=== PATIENT | male | born 1930 | race Caucasian/White ===

== ENCOUNTER 2017-08-17 18:13 | Inpatient (IN) | payer OTHER ==
[~2017-08-17] VITALS: Ht 177.8 cm; Wt 76.8 kg
--- NOTE | ~2017-08-17 | PR ---
[place], [place] PROGRESS NOTE NAME: [facility]RE [id number] UNIT #: [id number] ROOM: 314 DOCTOR: ROXANNA MAZARIEGOS MD BIRTHDATE: [birth year] DOS: 08/20/2017 CHIEF COMPLAINT: "I am still having those thoughts." SUMMARY OF THE VISIT: The patient was interviewed as he was sitting at the edge of his bed. He reported to me that although he is feeling better, he is very worried because he is still having those intrusive thoughts. His mood is slightly brighter. He is sleeping better at night. He is worried, however, that the thoughts will not go away, yet I gave him support and redirection and he nodded in affirmation. MENTAL STATUS: He is alert and oriented. Mood does seem to be trending towards euthymia and affect is more appropriate. There is no susan or hypomania. He still has those intrusive thoughts, but feels he would not act on them. Short term, intermediate, and long-term memory are intact. PLAN: I am still awaiting his gabapentin level to determine if it is therapeutic. I will increase his Remeron from 15 to 22.5 mg at bedtime engaging him in individual and jamil milieu activity and discharge when psychiatrically stable. ROXANNA MAZARIEGOS MD CM:PNTRANS [id number] ROXANNA MAZARIEGOS MD 08/21/17 0011 interface
--- NOTE | ~2017-08-17 | PR ---
[place], [place] PROGRESS NOTE NAME: [facility] [id number] UNIT #: [id number] ROOM: 314 DOCTOR: ROXANNA MAZARIEGOS MD BIRTHDATE: [birth year] DOS: 08/21/2017 CHIEF COMPLAINT: "I am feeling better. I am less depressed and those thoughts are getting better." SUMMARY OF THE VISIT: The patient was interviewed in the quiet room. He was sitting there and he readily engaged in conversation. He reached to shake my hand as I approached, stating that he is feeling so much better now and that these medicines are working better than the previous ones he had while at home. He reports he is sleeping soundly through the night, waking up refreshed, not sedate in any fashion and that the intrusive thoughts of harming self and others have dissipated significantly. He also convincingly denies any medication side effects, no sedation, somnolence, extrapyramidal symptoms or tardive dyskinesia are noted. MENTAL STATUS: He is alert and oriented to person, place, and time. Mood is definitely trending towards euthymia. Affect is much more appropriate. His speech rate and pattern has normalized. There is no susan, hypomania. There are no gross psychotic symptoms noted. As mentioned previously, the intrusive thoughts of harming self and others have dissipated almost completely. Memory for the most part is fully intact. PLAN: I will maintain his current psychotropic regimen. Continue to monitor and support, engage in individual and jamil milieu activity with the plan to return home when psychiatrically stable. ROXANNA MAZARIEGOS MD CM:PNTRANS [id number] ROXANNA MAZARIEGOS MD 08/21/17 2250 interface
--- NOTE | ~2017-08-17 | PR ---
[place], [place] PROGRESS NOTE NAME[id number] UNIT #: [id number] ROOM: 316 DOCTOR: ROXANNA MAZARIEGOS MD BIRTHDATE: [birth year] DOS: 08/19/2017 CHIEF COMPLAINT: "Bit by bit and day by day I am getting better doctor, thank you." SUMMARY OF THE VISIT: The patient was interviewed as he was walking up and down the quach for exercise. He reports that he does feel like the current medicines are working better than the previous ones and states that he is sleeping well and the intrusive thoughts of wanting to hurt himself or his family are dissipating. He reports no side effects from the current medication regimen. MENTAL STATUS: He is alert and oriented. Mood does seem to be trending towards euthymia. Affect is much more appropriate. There is no susan, hypomania or gross psychosis. Short-term, intermediate, and long-term memory are intact. PLAN: I will maintain his current psychotropic regimen of Remeron and Invega. Engage in individual and jamil milieu activity, returning to the least restrictive environment when psychiatrically stable. ROXANNA MAZARIEGOS MD CM:PNTRANS [id number] ROXANNA MAZARIEGOS MD 08/19/17 1435 interface
--- NOTE | ~2017-08-17 | WRIGHTHP ---
[place], [place] PATIENT HISTORY AND PHYSICAL EXAM NAME[id number] UNIT #: [id number] ROOM: 316 DOCTOR: ROXANNA MAZARIEGOS MD BIRTHDATE: [birth year] DOS: 08/18/2017 CHIEF COMPLAINT: "I was having thoughts of hurting myself and my family." HISTORY OF PRESENT ILLNESS: This is an 87-year-old white male who was sent here from [facility] where he had presented with a chief complaint of having suicidal thoughts towards himself and homicidal thoughts towards his children and his grandchildren. He reports that the thoughts of hurting his children and grandchildren first occurred in 2006 and have episodically waxed and waned over time. Most recently, he has seen a psychiatrist who had prescribed him Lexapro 10 mg a day. This was working to stop the intrusive thoughts, but recently he received the generic form of the Lexapro and stated that he noticed a decline in his mood and an increase in the intrusive thoughts. He himself began then taking 2 of the generic Lexapro daily, which did start to help some, but he still then noticed fleeting suicidal thoughts with a plan. The patient presented to [facility] for evaluation and they felt that inpatient stabilization was warranted at this time to prevent harm to self and others. PAST MEDICAL HISTORY: Remarkable for hyperlipidemia, GERD, hypothyroidism, macular degeneration and an essential tremor. SOCIAL HISTORY: The patient does not drink alcohol, smoke cigarettes or use any illicit drugs. ALLERGIES: He has no known allergies listed. STRENGTHS: The patient is physically fit, good verbal skills, in a supportive environment. MENTAL STATUS: The patient is alert and oriented with actual pretty decent details regarding his past history. Mood does seem to be somewhat depressed, although he minimizes this. There is no hypomania, susan. There are no gross psychotic symptoms, although there is the presence of these intrusive thoughts of wanting to stab his children and his grandchildren and most recently has hurt himself. Memory for the most part seems relatively intact. DIAGNOSIS UPON ADMISSION: Major depression, recurrent, with psychotic features. PLAN: I will go ahead and switch him off the Lexapro on to Remeron 15 mg at bedtime. I did give him a loading dose of Invega 6 mg last night. I will cut this down to 3 mg in the morning and monitor him. I also had started him on Exelon patch, believing that dementia was present, but this does not seem to be the case as he does seem to be fairly alert and oriented, so I will discontinue the Exelon patch at this point, but continue to monitor his cognitive status. We will engage him in individual and jamil milieu activity with the ultimate plan to return home or to the least restrictive environment when psychiatrically stable. [place], [place] PATIENT HISTORY AND PHYSICAL EXAM NAME: BOYD TOURE UNIT #: [id number] ROOM: [facility] DOCTOR: ROXANNA MAZARIEGOS MD BIRTHDATE: [birth year] ROAXNNA MAZARIEGOS MD CM:HISPHYS:PATIENT HISTORY AND PHYSICAL EXAMINATION 8 4 ROXANNA MAZARIEGOS MD 08/18/1714 interface
--- NOTE | ~2017-08-17 | DS ---
[place], [place] DISCHARGE SUMMARY NAME[id number] UNIT #: [id number] ROOM: 314 DOCTOR: ROXANNA MAZARIEGOS MD BIRTHDATE: [birth year] DOS: 08/22/2017 CHIEF COMPLAINT: "I was having thoughts of hurting myself and my family." HISTORY OF PRESENT ILLNESS: This is an 87-year-old white male who was sent here from [facility] where he had presented with a chief complaint of having suicidal thoughts towards himself and homicidal thoughts towards his children and his grandchildren. He reports that the thoughts of hurting his children and grandchildren first occurred in 2006 and have episodically waxed and waned over time. Most recently, he had seen a psychiatrist who prescribed him Lexapro 10 mg a day. This was working to stop the intrusive thoughts until recently when he was given a generic form of Lexapro and he stated that this caused a decline in his mood and an increase in the intrusive thoughts. He himself began taking two of the generic Lexapro daily, which did start to help, but he still noticed fleeting suicidal thoughts with a plan. He presented to [facility] for evaluation and they felt that inpatient stabilization was warranted to prevent harm to self and others. PAST MEDICAL HISTORY: Remarkable for hyperlipidemia, GERD, hypothyroidism, macular degeneration and an essential tremor. SOCIAL HISTORY: The patient does not drink alcoholic beverages, smoke cigarettes or use illicit drugs. ALLERGIES: He has no known allergies listed. STRENGTHS: He is physically fit, good verbal skills and in a supportive environment. WEAKNESSES: He has significant psychiatric stressors. SUMMARY OF THE HOSPITAL COURSE: The patient was admitted to the unit where he had his Lexapro discontinued due to the fact that it was beginning to be ineffective Remeron 15 mg at bedtime was utilized as an antidepressant. This dramatically improved sleep and appetite. Invega was given at 6 mg a day for the first night and given his age, the dose was lowered to 3 mg in the morning. The patient was also started initially on Exelon patch, but he did seem to be alert and oriented x 3, so this was discontinued. He maintained on the Invega 3 mg a day. Remeron was increased to 22.5 mg at bedtime with good results. The patient reported that his depressive symptoms dissipated rather quickly. The fleeting thoughts of hurting self and others also decreased in both frequency and intensity and well present upon discharge were so miniscule that he did not seem bothered by them. He tolerated the medication regimen well and did not exhibit any excess sedation, somnolence, extrapyramidal symptoms or tardive dyskinesia. MENTAL STATUS AT DISCHARGE: He is alert and oriented. Mood does seem to be euthymic. Affect appropriate. There is no symptom suggestive of susan or hypomania. As mentioned previously, the auditory or intrusive thoughts had dissipated almost completely. Memory for the most part was intact. [place], [place] DISCHARGE SUMMARY NAME: [facility]: [id number] UNIT #: [id number] ROOM: 314 DOCTOR: ROXANNA MAZARIEGOS MD BIRTHDATE: [birth year] DISCHARGE DIAGNOSIS: Major depression, recurrent with psychotic features. PLAN: The patient is to return home. His prescriptions have been e-scribed to [facility]. He is medically and psychiatrically stable. He is able to attend to the basic ADLs that require him to be independent. His biopsychosocial needs are adequately being met by family and the community at large. ROXANNA MAZARIEGOS MD CM:LISSY [phone] ROXANAN MAZARIEGOS MD 08/22/17 1414 interface
[2017-08-17] MEDS ORDERED: CELEXA20 MG PO (18:19)
[2017-08-17] MEDS ORDERED: FENOFIBRATE160 MG PO (18:20)
[2017-08-17] MEDS ORDERED: FINASTERIDE5 M1 PO (18:21)
[2017-08-17] MEDS ORDERED: NEURONTIN800 MG PO (18:24)
[2017-08-17] MEDS ORDERED: LOVASTATIN40 MG PO (18:27)
[2017-08-17] MEDS ORDERED: MIDODRINE HCL5 M1 PO ×2 (18:29→18:31)
[2017-08-17] MEDS ORDERED: MIDODRINE HCL10 MG PO (18:30)
[2017-08-17] MEDS ORDERED: NAMENDA XR28 M1 PO (18:31)
[2017-08-17] MEDS ORDERED: SYNTHROID,LEV112 MCG PO (18:32)
[2017-08-17] MEDS ORDERED: PROPRANOLOL HCL10 MG PO (18:32)
[2017-08-17 20:29] VITALS: BP 158/85
[2017-08-17 21:48] LABS: BILIRUBIN NEGATIVE (NEGATIVE); BLOOD 3+ (NEGATIVE); CLARITY SL CLOUDY (CLEAR); COLOR YELLOW (YELLOW); GLUCOSE NEGATIVE (NEGATIVE); KETONE NEGATIVE (NEGATIVE); LEUKO ESTERASE NEGATIVE (NEGATIVE); NITRITE NEGATIVE (NEGATIVE); PH 5.5 (5.0-9.0); UROBILINOGEN 0.2 E.U./dl (0.2-1.0)
[2017-08-17 22:06] LABS: BACTERIA 1+; EPITHELIAL CELLS 0-2; RBC TNTC rbc/hpf (0-2); WBC 0-2 wbc/hpf (0-5)
[2017-08-17 22:13] VITALS: BP 158/85
[2017-08-18 07:37] LABS: BASO % 0.4 % (0.0-1.0); EOS # 0.1 10*3/uL (0.0-0.4); EOS % 2.1 % (1.0-4.0); HEMATOCRIT 42.8 % (42.0-52.0); HEMOGLOBIN 14.8 g/dl (14.0-18.0); LYMPH # 1.7 10*3/uL (1.3-4.4); LYMPH % 32.4 % (27.0-41.0); MEAN CORPUSCULAR HGB 33.2 pg (27.0-31.0); MEAN CORPUSCULAR HGB CONC 34.6 g/dl (33.0-37.0); MEAN PLATELET VOLUME 9.9 fl (9.6-12.3); MONO # 0.6 10*3/uL (0.1-1.0); MONO % 10.8 % (3.0-9.0); NEUT # 2.8 10*3/uL (2.3-7.9); NEUT % 53.9 % (47.0-73.0); PLATELET COUNT AUTOMATED 155 10*3/uL (130-400); RED BLOOD COUNT 4.46 10*6/uL (4.50-5.90); RED CELL DISTRI WIDTH 12.8 % (0-14.5); WHITE BLOOD COUNT 5.2 10*3/uL (4.8-10.8)
[2017-08-18 07:39] VITALS: BP 147/70
[2017-08-18 07:55] LABS: ALBUMIN 3.5 gm/dl (3.1-4.5); ALKALINE PHOSPHATASE 51 U/L (45-117); BUN 18 mg/dl (7-24); CHLORIDE 108 mmol/L (98-107); CHOLESTEROL 172 mg/dL (<200); CREATININE 1.01 mg/dL (0.70-1.30); HDL CHOLESTEROL 47 mg/dl (40-60); LDL CHOLESTEROL 103 mg/dL (9-159); POTASSIUM 3.7 mmol/L (3.5-5.1); SGOT/AST 29 IU/L (3-35); SGPT/ALT 16 U/L (12-78); SODIUM 144 mmol/L (136-145); TOTAL PROTEIN 6.6 gm/dL (6.4-8.2); TRIGLYCERIDES 112 mg/dl (<150); VLDL CHOLESTEROL 22 mg/dL (6-40)
[2017-08-18 08:01] LABS: THYROID STIM HORMONE (HS) 0.676 uIU/ml (0.358-4.75)
[2017-08-18 20:13] VITALS: BP 117/76
[2017-08-19 08:05] VITALS: BP 143/71
[2017-08-19 20:52] VITALS: BP 127/71
[2017-08-20 08:03] VITALS: BP 132/60
[2017-08-20 20:04] VITALS: BP 143/74
[2017-08-21 07:45] VITALS: BP 152/71
[2017-08-21 16:07] LABS: NEURONTIN (GABAPENTIN) 12.3 ug/mL (4.0-16.0)
[2017-08-21 19:51] VITALS: BP 147/73
[2017-08-22 08:07] VITALS: BP 151/71
[2017-08-22] MEDS ORDERED: VITAMIN D31000 UNIT PO (11:17)
[2017-08-22] MEDS ORDERED: PALIPERIDONE ER3 MG PO (12:55)
[2017-08-22] MEDS ORDERED: MIRTAZAPINE15 M2 PO (12:55)
== END 2017-08-22 14:23 | disposition home or self-care (01) | DRG 885 ==
LOC: 3N 18:13
PROVIDERS: Psychiatry & Neurology Psychiatry
DX: F33.3 Major depressive disorder, recurrent, severe with psychotic symptoms (principal); I95.9 Hypotension, unspecified; R45.851 Suicidal ideations; R45.850 Homicidal ideations; E78.5 Hyperlipidemia, unspecified; K21.9 Gastro-esophageal reflux disease without esophagitis; E03.9 Hypothyroidism, unspecified; F17.210 Nicotine dependence, cigarettes, uncomplicated; H35.30 Unspecified macular degeneration; R25.9 Unspecified abnormal involuntary movements; Z90.89 Acquired absence of other organs; Z82.3 Family history of stroke; Z79.899 Other long term (current) drug therapy

== ENCOUNTER 2017-12-12 08:43 | Inpatient (IN) | payer OTHER ==
[~2017-12-12] VITALS: Ht 172.7 cm; Wt 77.7 kg
--- NOTE | ~2017-12-12 | PR ---
[place], [place] PROGRESS NOTE NAME: [id number] UNIT #: [id number] ROOM: 317 DOCTOR: ROXANNA MAZARIEGOS MD BIRTHDATE: [birth year] DOS: 12/16/2017 CHIEF COMPLAINT: "I am still having those bad thoughts; I would like to have a production engineer come in to give me communion tomorrow." SUMMARY OF THE VISIT: The patient was interviewed as he was sitting at the edge of his bed in his room. He engaged readily in conversation. He reports he is still having thoughts of suicide and still feels depressed. The thoughts are intrusive and problematic and bother him throughout the day. He did take solace in the fact that a packing machine inspector or production engineer came in the other day and did talk to him. This made him feel better for a short period of time. He does report tolerating the current medication regimen well and is open to me adjusting things accordingly. His only complaint is mild tremor, which I do believe is secondary to the discontinuation of his previous antipsychotic and not the Seroquel that was added. MENTAL STATUS: He is alert and oriented with some time gaps. Mood does seem to be trending towards euthymia. Affect is more appropriate, but still depressed. He endorses positive suicidal thoughts with a plan. There is no susan or hypomania. There are no auditory or visual hallucinations. No delusions. Short-term memory has mild gaps, but for the most part is intact. PLAN: I will increase Cymbalta to 30 mg in the morning and 60 mg at night, add Cogentin 0.5 mg b.i.d. to see if this impacts positively on the tremor. We will reach out to a chemistry tutor or episcopal vice president consulting services to come Monday to give him the sacrament of communion, engage in individual and jamil milieu activity, returning then to the least restrictive environment when psychiatrically stable. ROXANNA MAZARIEGOS MD CM:PNTRANS 0 0 ROXANNA MAZARIEGOS MD 12/16/1738 interface
--- NOTE | ~2017-12-12 | PR ---
[place], [place] PROGRESS NOTE NAME: BOYD TOURE UNIT #: [id number] ROOM: 317 DOCTOR: ROXANNA MAZARIEGOS MD BIRTHDATE: [birth year] DOS: 12/14/2017 CHIEF COMPLAINT: "I slept a little better, but I am still having the thoughts." SUMMARY OF THE VISIT: The patient was interviewed in the quiet area. He reported that he did sleep better and slept until about 5:00 a.m. and then woke up, he is still having the suicidal thoughts, but reports that if he prays or reads the Bible this is one thing that will ease his mind, being around people, watching television do not help. I discussed with him the possibility of consulting a salmon troll fisher or a mormonism editing computer publisher and he did agree to do so. He does report no side effects from the medication changes and is aware that I adjusted both the Cymbalta and added the Seroquel. MENTAL STATUS: He is alert and oriented. Mood does seem to be still depressed. Affect is flat, blunted, and constricted. He still endorses significant suicidal thoughts and a plan. Short term memory, intermediate memory and long-term memory are roughly intact. PLAN: I will maintain the Cymbalta at 60 mg at bedtime. I will increase Seroquel to 100 mg at bedtime. I will consult both Dr. Brandon Gusman, psychologist and a salmon troll fisher or mormonism editing computer publisher for spiritual and psychological services. ROXANNA AMZARIEGOS MD CM:PNTRANS [phone] ROXANNA MAZARIEGOS MD 12/14/17 1239 interface
--- NOTE | ~2017-12-12 | PR ---
[place], [place] PROGRESS NOTE NAME: BOYD TOURE UNIT #: [id number] ROOM: 309 DOCTOR: ROXANNA MAZARIEGOS MD BIRTHDATE: [birth year] DOS: 12/20/2017 CHIEF COMPLAINT: "I slept better. I am still having the thoughts, but maybe there are little better." SUMMARY OF THE VISIT: The patient was interviewed as he was sitting at the edge of his bed, looking out the window. He engaged readily in conversation and did report that he is sleeping better since I adjusted his Seroquel. He is still having those intrusive thoughts; however, as I approached him, he did smile more so than he has in the past. He convincingly denies medication side effects, other than the mild tremor that is noted in his hands. This has been bothersome for him and has been worse in the last 10 days per his report. MENTAL STATUS: He is alert and oriented. Mood does seem to be trending towards euthymia. Affect is more appropriate. There is no susan, hypomania or gross psychosis. There is still the intrusive suicidal thoughts. Short term memory, intermediate memory and long-term memory are relatively intact. PLAN: I will increase his Cogentin from 0.5 mg twice a day to 1 mg twice a day in an effort to suppress the tremor. I will also add Symmetrel 100 mg twice daily to help with the tremor. There is a question as to whether or not he has Parkinson's disease. We will go ahead and refer to a neurologist post-discharge for further evaluation. ROXANNA MAZARIEGOS MD CM:PNTRANS [phone] ROXANNA MAZARIEGOS MD 01/18/18 1424 interface
--- NOTE | ~2017-12-12 | PR ---
[place], [place] PROGRESS NOTE NAME: BOYD TOURE UNIT #: [id number] ROOM: 309 DOCTOR: ROXANNA MAZARIEGOS MD BIRTHDATE: [birth year] DOS: 12/19/2017 INTERVAL NOTE CHIEF COMPLAINT: "I am still having those thoughts." SUMMARY OF THE VISIT: The patient was interviewed as he sat eating his breakfast. He had most if not all of his breakfast completed. He did engage readily in conversation and reported that he did sleep a little better, but still woke up early. He no longer has the side effects of urinary frequency, which was predominant yesterday and seems to have dissipated with the lowering of the Cymbalta dose. He continues to report that the thoughts of suicide are intrusive and torment him throughout the day. He is willing to allow me to adjust his medicines further. MENTAL STATUS: He is alert and oriented to person, place and time. Mood does still seem to be depressed. He is very much preoccupied with suicide as the only means to get relief. There is no hypomania or susan. There are no overt auditory or visual hallucinations. Memory for the most part is intact. PLAN: His gabapentin level is therapeutic at 11.6, so I will maintain his current Neurontin dosing. I will increase Seroquel from 100 mg at bedtime to 200 mg at bedtime. He does request the presence of a telegraph office telephone clerk again and I have notified clinical social work therapist to please call the dioceses to see if a telegraph office telephone clerk can be made available to meet the patient's spiritual needs. We will engage in individual and jamil milieu activity, returning then to the least restrictive environment when psychiatrically stable. ROXANNA MAZARIEGOS MD CM:PNTRANS [id number] ROXANNA MAZARIEGOS MD 01/18/18 1421 interface
--- NOTE | ~2017-12-12 | PR ---
[place], [place] PROGRESS NOTE NAME: [id number] UNIT #: [id number] ROOM: 311 DOCTOR: ROXANNA MAZARIEGOS MD BIRTHDATE: [birth year] DOS: 12/27/2017 INTERVAL NOTE CHIEF COMPLAINT: "Those thoughts are just so bad, they have not gone away." SUMMARY OF THE VISIT: The patient was interviewed first in the hallway as he propelled himself in his wheelchair and then later he did ask to speak to me again in the dining area. He reports on a positive note that the tremors do seem to be lessening. On a negative note, he notices no appreciable change in his mood or the negative intrusive thoughts since the initiation of the Cymbalta. He also notes significant side effects mounting from the Cymbalta. I discussed with him the option of switching to a different antidepressant and he did agree that this would be something he was willing to do. MENTAL STATUS: He remains alert and oriented to person, place and time. Mood does still seem to be horribly depressed. Affect is constricted. He continues to endorse positive suicidal thoughts and a wish to . There is no hypomania, susan or psychotic symptoms. Memory for the most part is fully intact. PLAN: At this point in time, I will discontinue Cymbalta due to ineffectiveness and start him on Trintellix 10 mg at bedtime. I will utilize Rozerem 8 mg at bedtime as needed for sleep aid. We will also obtain a PT, OT consult to evaluate his gait and determine the safest way for him to ambulate on the unit and at home. We will engage in individual and jamil milieu activity, returning to the least restrictive environment when psychiatrically stable. ROXANNA MAZARIEGOS MD CM:PNTRANS [phone] ROXANNA MAZARIEGOS MD 12/27/17 1547 interface
--- NOTE | ~2017-12-12 | PR ---
[place], [place] PROGRESS NOTE NAME: BOYD TOURE UNIT #: [id number] ROOM: 317 DOCTOR: ROXANNA MAZARIEGOS MD BIRTHDATE: [birth year] DOS: 12/18/2017 INTERVAL NOTE CHIEF COMPLAINT: "I still have those thoughts talk." SUMMARY OF THE VISIT: The patient was interviewed as he sat in the group therapy room. He engaged readily in conversation and continues to report of having the intrusive thoughts of wishing he were . We discussed at length the fact that he is Judaism and per his orthodox beliefs, it would be a mortal sin to commit suicide and while he has the thoughts, he states that he would not ever carry them through. He, however, is tortured by the thoughts and remains depressed. He also continues to have what appears to be side effects secondary to either the initiation of meds or the discontinuation of meds. He still has some mild mouth tremors, some mild hand tremors and this morning, he complained of urinary issues with starting his stream. MENTAL STATUS: He is alert and oriented to person, place, and relatively to time. Mood does seem to be still depressed. He still endorses the neurovegetative symptoms as well as the fleeting thoughts of suicide. There is no susan or psychotic symptoms. Memory for the most part is intact. PLAN: I will renew his p.r.n. Ativan in case he requires intervention. I will also lower his Cymbalta down to 60 mg at bedtime in case the dosing is causing him to have some urinary issues. We will monitor and support. ROXANNA MAZARIEGOS MD CM:PNTRANS [phone] ROXANNA MAZARIEGOS MD 12/18/17 1523 interface
--- NOTE | ~2017-12-12 | EKG ---
[place], [place] ELECTROCARDIOGRAM REPORT NAME: BOYD TOURE UNIT #: [id number] ROOM: 317 DOCTOR: BRIDGET DRAFT REPORT BIRTHDATE: [birth year] [facility] Test Date: 2017-12-12 Test Time: 09:39:17 Pat Name: BOYD TOURE Department: Room: [facility] Gender: M Warp Scouring Vat Tender: Marychuy Conner : 1930 Requested By: SANDRO GONZALEZ Order Number: [id number] Reading MD: Delta Mera MD Measurements Intervals [place] Rate: 56 P: 32 GA: 169 QRS: -22 QRSD: 93 T: 25 QT: 447 QTc: 432 Interpretive Statements Sinus rhythm Electronically Signed On 12-12-2017 18:27:49 PDT by Delta Mera MD CM:EKGRPT:ELECTROCARDIOGRAM REPORT [id number] SANDRO GILL DRAFT REPORT SANDRO GONZALEZ M.D.
--- NOTE | ~2017-12-12 | PR ---
[place], [place] PROGRESS NOTE NAME: [id number] UNIT #: [id number] ROOM: 312 DOCTOR: ROXANNA MAZARIEGOS MD BIRTHDATE: [birth year] DOS: 12/28/2017 INTERVAL NOTE CHIEF COMPLAINT: "I am still having those thoughts." SUMMARY OF THE VISIT: The patient was interviewed in his room. He reports that the thoughts are still very much present and he is still having a significant amount of sleep issues. He reports he tolerated the Trintellix well for the first night. He notes on a positive stream that his tremors have been significantly improved since the Sinemet has been added and adjusted. MENTAL STATUS: He is alert and oriented. Mood does still seem to be overwhelmingly depressed. Affect is flat, blunted, and constricted. He endorses multiple neurovegetative symptoms and both suicidal and homicidal thoughts. There is no susan or hypomania. There are no overt auditory or visual hallucinations. Memory for the most part is intact. PLAN: I will increase his Trintellix from 10 to 20 mg at bedtime maximizing the dose. I did educate him on the timeframe to which antidepressants take to work and offered him support and requested that he be patient with the medication. He nodded in approval. We will continue to engage him in individual and jamil milieu activity, returning back home or the least restrictive environment when psychiatrically stable. ROXANNA MAZARIEGOS MD CM:PNTRANS [phone] ROXANNA MAZARIEGOS MD 12/28/17 1201 interface
--- NOTE | ~2017-12-12 | PR ---
[place], [place] PROGRESS NOTE NAME: BOYD TOURE UNIT #: [id number] ROOM: 309 DOCTOR: ROAXNNA MAZARIEGOS MD BIRTHDATE: [birth year] DOS: 01/03/2018 CHIEF COMPLAINT: "I don't want to go to [place] I cannot be self-sufficient." SUMMARY OF THE VISIT: The patient was interviewed as he sat in his wheelchair, watching television and he engaged readily in conversation. Earlier in the morning I did watch him ambulate with the assistance of physical therapy, as long as he is having assistance he does seem to ambulate better, but he is fearful of walking now because he is afraid he will fall. He discussed at length his fears about going into a shelter in [place] stating that his brother was in a home in [place] and they required him to be self-sufficient. The patient is fearful that he could not be self-sufficient and needs more assistance. Both he and his agree that placement at this point is advisable and are willing to go forward with this. I did discuss with him multiple homes in the [place] and [place] area that would be appropriate and told him that social worker will sit down and talk to him about each home and no decision will be made unless he and his both approve of it. MENTAL STATUS: He is alert and oriented with time gaps. Mood does seem to be still depressed. He is still admitting to intrusive thoughts. He looks rather sad and forlorn for the most part. There is no susan, hypomania or gross psychotic symptoms. Memory has some minor gaps, but is intact. PLAN: I will change his Sinemet to 10/100 t.i.d. to pull out the dose more consistently through the day to see if this helps with his movements. We will continue his Trintellix at 20 mg a day. Continue to engage in individual and jamil milieu activity, returning then to the least restrictive environment when psychiatrically stable. ROXANNA MAZARIEGOS MD CM:PNTRANS [phone] ROXANNA MAZARIEGOS MD 01/03/18 1028 interface
--- NOTE | ~2017-12-12 | PR ---
[place], [place] PROGRESS NOTE NAME: BOYD TOURE UNIT #: [id number] ROOM: 311 DOCTOR: ROXANNA MAZARIEGOS MD BIRTHDATE: [birth year] DOS: 12/26/2017 INTERVAL NOTE CHIEF COMPLAINT: "I am still having those thoughts and I am still shaky." SUMMARY OF THE VISIT: The patient was interviewed first in the dining area as he completed his breakfast, then later when his did come for a family meeting. The patient reports that he is still having the intrusive thoughts, but he is fighting them. He does note on a positive note that he is slightly less tremorous, but the tremors are still problems especially when he has purposeful voluntary movement. He reports no side effects other than he is again having some urinary hesitancy. MENTAL STATUS: He is alert and oriented. Mood does seem to be still depressed, but improving. There is no hypomania or susan. There are no gross psychotic symptoms. Short-term, intermediate, and long-term memory are relatively intact. PLAN: I will increase the Sinemet from 10-100 b.i.d. to 25-100 b.i.d., maintain his current dose of Cymbalta. I have discontinued the Seroquel and we will attempt to avoid antipsychotic mood stabilizers at this point because of his sensitivity. I have also started vitamin E 400 IUs daily yesterday to treat this as a possible tardive dyskinesia. We will continue to monitor and support, engage in individual and jamil milieu activity, returning to the least restrictive environment when psychiatrically stable. ROXANNA MAZARIEGOS MD CM:PNTRANS [id number] ROXANNA MAZARIEGOS MD 12/26/17 1144 interface
--- NOTE | ~2017-12-12 | PR ---
[place], [place] PROGRESS NOTE NAME[id number] UNIT #: [id number] ROOM: 311 DOCTOR: ROXANNA MAZARIEGOS MD BIRTHDATE: [birth year] DOS: 12/25/2017 INTERVAL NOTE CHIEF COMPLAINT: "I am still having those thoughts to end my life." SUMMARY OF THE VISIT: The patient was interviewed in his room. He was standing through most of the interview. As he stood, he did sway a little bit. He did also report to me that he fell twice during the weekend. He could not verbalize whether it was totally because his legs gave out on him or because he was dizzy and unsteady. He continues to look very depressed and is very flat and mask-like in his presentation. MENTAL STATUS: He is alert and oriented to person, place and fairly much to time. Mood does seem to still be depressed. Affect is still constricted and blunted. He endorses significant thoughts of wanting to harm himself. There is no susan, hypomania or psychosis. Memory for the most part is intact. PLAN: I am going to simplify his drug regimen. The addition of the Cogentin and the Symmetrel have not seemed to lessen the hand tremors much if at all. I will also discontinue the Seroquel in case it is exacerbating the tremor. It certainly could also be causing orthostatic hypotension. In its place, I will add low dose Sinemet 10-100 twice a day to address what appears to be parkinsonian symptoms. I will also start him on vitamin E 400 international units in the morning to address the possibility that this is tardive dyskinesia. We will engage him in individual and jamil milieu activity, returning to the least restrictive environment when psychiatrically stable. ROXANNA MAZARIEGOS MD CM:PNTRANS [phone] ROXANNA MAZARIEGOS MD 12/25/17 1749 interface
--- NOTE | ~2017-12-12 | PR ---
[place], [place] PROGRESS NOTE NAME: [facility]RE [id number] UNIT #: [id number] ROOM: 317 DOCTOR: BRYCE CAMPOS MD BIRTHDATE: [birth year] DOS: 12/17/2017 PSYCHIATRIC PROGRESS NOTE SUBJECTIVE: The patient seen and spoke with the nursing staff. Per staff, the patient is still very depressed. Continued to have suicidal and homicidal ideation, but informed the staff that he will not act on it. The patient was pleasant and cooperative, but very flat. He was sitting in the room in front of the nursing station. He reported being depressed and down. He also talked about having fleeting nonspecific homicidal thoughts. He said that he took his medication and did not have any side effect from the medication. MENTAL STATUS EXAMINATION: The patient was pleasant and cooperative. His affect was very flat. He described his mood as "down." He denied any auditory or visual hallucination. No delusion or paranoia noted. He still had fleeting suicidal and nonspecific homicidal ideation, but no intent or plan. Insight and judgment was poor to fair. PLAN: 1. Continue current medication as per the treatment team. 2. Continue redirection. 3. Supportive care. BRYCE CAMPOS MD CM:PNTRANS [phone] BRYCE CAMPOS MD 12/18/17 0125 interface
--- NOTE | ~2017-12-12 | PR ---
[place], [place] PROGRESS NOTE NAME: [facility]OURE [id number] UN[facility] #: [id number] ROOM: 309 DOCTOR: ROXANNA MAZARIEGOS MD BIRTHDATE: [birth year] DOS: 01/02/2018 CHIEF COMPLAINT: "I fell again this morning." SUMMARY OF THE VISIT: The patient was interviewed in the dining area where he was sitting with a male peer. He continued to complain of intrusive negative thoughts. I discussed with him the option of going into a 30-day rehab facility giving him a chance for the Trintellix to work longer and also to build up strength and improve his gait. Surprisingly, he agreed without any reservations whatsoever. MENTAL STATUS: The patient is alert and oriented with some time gaps. Mood does still seem to be depressed with some anxious overtones. There is no susan or hypomania. There are no gross psychotic symptoms. No auditory or visual hallucinations are present. There is still the presence of intrusive thoughts to either hurt himself or others. Short term memory has some gaps, otherwise he is intact. PLAN: I will recheck a Neurontin level in the a.m. to ensure that the level has not crept up to high therapeutic or outside of therapeutic range. I will discontinue his Klonopin as I do fear that the Klonopin is causing him to be somewhat somnolent. We will monitor and support, engage in individual and jamil milieu activities, returning to the least restrictive environment when psychiatrically stable. ROXANNA MAZARIEGOS MD CM:PNTRANS [id number] ROXANNA MAZARIEGOS MD 01/02/18 1153 interface
--- NOTE | ~2017-12-12 | PR ---
[place], [place] PROGRESS NOTE NAME: BOYD TOURE UNIT #: [id number] ROOM: 317 DOCTOR: MERLIN STILES,LIZZIE (JACK) BIRTHDATE: [birth year] DOS: 12/18/2017 At the present time, this patient still fears that he may want to harm someone in his family. He states he would never do anything to hurt anybody in his family, but he worries that he might be compelled to do something to hurt them. He denies any suicidal ideation or plan whatsoever. He does want to follow with Dr. Salazar and Dr. Salazar's therapist in [facility] once he is discharged from the hospital. Clearly, he is not ready for discharge yet, but hopefully his thoughts of harming others will eventually go away and he will be discharged home with outpatient therapy. DIAGNOSIS: Major depressive disorder with psychotic features. Thank you very much for this consultation. LIZZIE BOYER ED.D CM:DAVID [id number] ROXANNA BOYER ED.D (BOB) 12/19/17 0935 interface
--- NOTE | ~2017-12-12 | PR ---
[place], [place] PROGRESS NOTE [id number] UN[facility] #: [id number] ROOM: 317 DOCTOR: ROXANNA MAZARIEGOS MD BIRTHDATE: [birth year] DOS: 12/21/2017 INTERVAL NOTE CHIEF COMPLAINT: "I am still having those thoughts." SUMMARY OF THE VISIT: The patient was interviewed as he sat at the edge of his bed. Of note, the tremors in his lips seem to have totally abated and the hand tremors also seem to be lessening but are still present. He looked more relaxed and calmer, although he continues to complain of intrusive suicidal thoughts. He voices no side effects from the medication and was very hopeful that he is going to get better. MENTAL STATUS: He is alert and oriented. Mood does seem to be gradually trending towards euthymia. Affect is more appropriate. There is no susan, hypomania or psychosis. Short term, intermediate, and long-term memory are relatively intact. PLAN: I will maintain his current psychotropic regimen. I will see if we can obtain a sock examiner to come in for his spiritual needs. Continue to support and redirect discharging then home when psychiatrically stable. ROXANNA MAZARIEGOS MD CM:PNTRANS 1 35 ROXANNA MAZARIEGOS MD 12/21/172032 interface
--- NOTE | ~2017-12-12 | PR ---
[place], [place] PROGRESS NOTE NAME: BOYD TOURE UNIT #: [id number] ROOM: 309 DOCTOR: ROXANNA MAZARIEGOS MD BIRTHDATE: [birth year] DOS: 01/01/2018 INTERVAL NOTE CHIEF COMPLAINT: "I am still having those thoughts what if I hurt myself, what if I hurt somebody else." SUMMARY OF THE VISIT: The patient was interviewed as he was in his room reading the newspaper, sitting on the edge of the bed. He engaged readily in conversation. He continues to be preoccupied with the thoughts that are in his head that he may hurt somebody. He almost panicked, as I discussed with him the possibility of returning home. We discussed at length his Jainism beliefs and how suicide is a mortal sin as is killing anyone. He did report that he would never act on these thoughts, but yet is still bothered by the persistent nature of them. MENTAL STATUS: He is alert and oriented. Mood does seem to be still depressed and very anxious and fretful. There is no significant hypomania, susan or psychosis. Memory for the most part is intact. PLAN: Given the near panic-like symptoms, he is having regarding these thoughts, I will go ahead and increase his daytime Klonopin, bringing his total dose to 0.5 mg in the morning and 1 mg at night. My hope is that if I would lessen the anxiety, this will make him feel more comfortable and be able to discharge home where he will allow the Trintellix more of a time to be effective at alleviating his depressive symptoms. ROXANNA MAZARIEGOS MD CM:PNTRANS [phone] ROXANNA MAZARIEGOS MD 01/01/181926 interface
--- NOTE | ~2017-12-12 | WRIGHTHP ---
[place], [place] PATIENT HISTORY AND PHYSICAL EXAM NAME: BOYD TOURE [facility] #: [id number] UNIT #: [id number] ROOM: 317 DOCTOR: ROXANNA MAZARIEGOS MD BIRTHDATE: [birth year] DOS: 12/13/2017 INITIAL PSYCHIATRIC EVALUATION CHIEF COMPLAINT: "I have just been so depressed, and I have been having those bad thoughts." HISTORY OF PRESENT ILLNESS: This is an 87-year-old white male known to me from a previous psychiatric admission to the [facility] who presented to the Emergency Room at [facility] with a chief complaint of wanting to stab people. The patient reports that his feelings of depression have been exacerbating over the last 4-6 weeks. During this period of time, he has noted increasing depression with poor sleep with difficulty falling asleep, sleep continuity disturbance, production trainer awakening, anergia, anhedonia, hopeless and helpless feelings, crying spells, and inability to cope. He also has had fleeting thoughts of wanting to harm himself by carbon monoxide poisoning or getting a knife and stabbing people. He reports he has bad thoughts and has actually had visions of him doing these types of acts. The patient reports that his current psychiatric medications, which include Invega, which was recently increased from 3 to 6 mg a day and Remeron 22.5 mg a day have been ineffective. He is admitted now to rule out organic factors, to stabilize on medication and to engage in individual and jamil milieu activity. PAST MEDICAL HISTORY: Remarkable for hyperlipidemia, GERD, hypothyroidism, macular degeneration, tremors, and a lengthy history of major depression, recurrent, with psychotic features. SOCIAL HISTORY: The patient does not drink alcohol, use illicit drugs, nor does he smoke cigarettes. FAMILY MEDICAL HISTORY: Remarkable for CVA in his father which was the cause of his early demise. His mother at the age of 94, reportedly of old age. STRENGTHS: Ambulatory, good verbal skills, supportive family. WEAKNESSES: Chronic mental health issues and poor coping skills. MENTAL STATUS: The patient is alert and oriented with some time gaps. Mood does seem to be very despondent and depressed. Affect is flat, blunted, and constricted. He endorses significant neurovegetative symptoms as well as both suicidal and homicidal ideation. Memory does have mild gaps, but overall he is relatively intact. DIAGNOSIS: Major depression, recurrent, severe, with psychotic features. PLAN: I have already discontinued his Remeron and will discontinue his Invega now. The patient does have some slight resting tremor of his hands as well as a very fine tremor in his lips. We will discontinue Invega then in lieu of Seroquel 50 mg at bedtime, which has a relatively low risk of EPS and tardive dyskinesia. I have already discontinued the Remeron in lieu of Cymbalta 30 mg [place], [place] PATIENT HISTORY AND PHYSICAL EXAM NAME: BOYD TOURE UNIT #: [id number] ROOM: 317 DOCTOR: DELILAH DURHAM,ROXANNA BIRTHDATE: [birth year] at bedtime, but we will go ahead and increase this now to 60 mg at bedtime. The patient does have some chronic pain issues for which he takes Neurontin 800 mg 3 times a day. This should also help impact positively on pain control. We will engage him in individual and jamil milieu activity with the plan then to discharge to the least restrictive environment when psychiatrically stable. ROXANNA MAZARIEGOS MD CM:HISPHYS:PATIENT HISTORY AND PHYSICAL EXAMINATION 0 4 ROXANNA MAZARIEGOS MD 12/13/1752 interface
--- NOTE | ~2017-12-12 | DS ---
[place], [place] DISCHARGE SUMMARY NAME: BOYD TOURE [facility] #: [id number] UNIT #: [id number] ROOM: 309 DOCTOR: ROXANNA MAZARIEGOS MD BIRTHDATE: [birth year] DOS: 01/04/2018 CHIEF COMPLAINT: "I have been so depressed and I have been having these bad thoughts." HISTORY OF PRESENT ILLNESS: This is an 87-year-old white male known to me from a previous psychiatric admission to the [facility]. He presented to the Emergency Room at [facility] with a chief complaint of wanting to stab people. He reports that this feeling of depression has been exacerbating over the last 4-6 weeks. During this period of time, he notes poor sleep and appetite, sleep continuity disturbance, family program specialist awakening, anergia, anhedonia, hopeless, helpless feelings, crying spells, and inability to cope. He has had fleeting thoughts of both wanting to hurt himself or hurt other people and he is fearful that he will act on this even though he has got strong Church beliefs. He is admitted now to rule out organic factors to stabilize on medication and to engage in individual and jamil milieu activity. SUMMARY OF HOSPITAL COURSE: The patient was admitted where his Remeron and Invega were both discontinued due to ineffectiveness. He was started on Cymbalta initially believing that this would help and this was gradually titrated from 30 to 60 mg a day and maintained for several days without any benefit. He continued to report significant depression that was pervasive in everything that he did, eventually then the Cymbalta was discontinued due to ineffectiveness and Trintellix 10 mg a day was started and Rozerem was also utilized to help with sleep issues. The patient's behavior persisted. Of note, he seemed to be extremely parkinsonian and had mass-like face and was very blunted. His gait was significantly impaired. For this reason, Sinemet was started to impact positively on the parkinsonian symptoms. The patient continued to regress ____ physically and his gait was extremely poor. The patient had fallen multiple times toward the latter part of his stay. Ultimately, the hospitalist felt that his medical conditions outweighed his psychiatric issues and the patient was discharged from the psychiatric floor on to a medical floor for further medical intervention. MENTAL STATUS AT DISCHARGE: The patient is alert and oriented with time gaps. Mood was still somewhat depressed with anxious overtones and there was persistent thoughts of hurting himself and others, although the likelihood of him acting on these thoughts was minimal. There was no manic symptoms or hypomanic symptoms. Memory for short term events had some mild issues, but otherwise he was fully intact. DISCHARGE DIAGNOSIS: Major depression, recurrent, severe with psychotic features. DISPOSITION: The patient is to be discharged from the Psychiatric Unit and admitted to the medical floor. Should you require further intervention, reconsult me. [place], [place] DISCHARGE SUMMARY NAME: BOYD TOURE UNIT #: [id number] ROOM: 309 DOCTOR: ROXANNA MAZARIEGOS MD BIRTHDATE: [birth year] ROXANNA MAZARIEGOS MD CM:LISSY [phone] ROXANNA MAZARIEGOS MD 01/25/18 1329 interface
--- NOTE | ~2017-12-12 | PN ---
[place], [place] PROGRESS NOTE NAME: BOYD TOURE UNIT #: [id number] ROOM: 309 DOCTOR: ROXANNA MAZARIEGOS MD BIRTHDATE: [birth year] DATE: 12/20/[address] MAZARIEGOS 01/18/18 1414: Above note reviewed. Agree with observations, recommendations, and overall treatment plan. ROXANNA MAZARIEGOS MD CM:PNTRANS 1414 ROXANNA MAZARIEGOS MD 01/18/18 1419 ANGI CERRATO [email or web address].TM
--- NOTE | ~2017-12-12 | PR ---
[place], [place] PROGRESS NOTE NAME: [facility]OURE [facility] [id number] UNIT #: [id number] ROOM: 312 DOCTOR: ROXANNA MAZARIEGOS MD BIRTHDATE: [birth year] DOS: 12/29/2017 INTERVAL NOTE CHIEF COMPLAINT: "I am still having those bad thoughts and I am so anxious." SUMMARY OF THE VISIT: The patient was interviewed in his room. He reports that he is still having the intrusive thoughts of either hurting himself or hurting someone else. Additionally, he reports that he did sleep, slightly better with the Rozerem, but once he woke up early in the morning, he was not able to fall back to sleep. He does appear outwardly anxious and he did endorse that he does feel anxious throughout the day. How much of the anxiety is exacerbating the depressive symptoms, it is unknown, but at this point, I feel we need to intervene to decrease his anxiety level and aid sleep further. MENTAL STATUS: He is alert and oriented with some minor gaps. Mood does seem to be still depressed and with anxious overtones. He endorses intrusive thoughts that persist. There is no susan or psychosis. Short-term, intermediate, and long-term memory for the most part are intact. PLAN: I will discontinue Rozerem due to ineffectiveness. I will increase Exelon patch to its maximum dose of 13.3 mg a day and I will utilize Klonopin 0.5 mg at bedtime to improve sleep and also to decrease daytime anxiety. We will instruct the nurses to monitor for any signs of excess sedation and somnolence with the Klonopin and if these are not present and anxiety persists, we can safely increase the nighttime Klonopin dose to 1 mg at bedtime. We will engage in individual and jamil milieu activity, returning home or the least restrictive environment when psychiatrically state. ROXANNA MAZARIEGOS MD CM:PNTRANS 40 ROXANNA MAZARIEGOS MD 12/29/171640 interface
--- NOTE | ~2017-12-12 | PR ---
[place], [place] PROGRESS NOTE NAME: [facility]OURE [id number] UN[facility] #: [id number] ROOM: 311 DOCTOR: BRYCE CAMPOS MD BIRTHDATE: [birth year] DOS: 12/24/2017 SUBJECTIVE: The patient seen and spoke with the staff. Per staff, the patient is doing well. No behavior problems or issues. He had a fall, but no one witnessed it, but the patient did not hit his head. The patient was pleasant and cooperative. He was in the day area watching the football game. He reports doing well. He did not express any concern about the fall. Denied any headache, nausea or vomiting or changes in his vision. He reports good sleep and appetite. MENTAL STATUS EXAMINATION: The patient was pleasant and cooperative. He was alert and oriented x 4. He described his mood as "okay." Affect, mood congruent. Thought process, goal directed. No flight of ideas, loosening of association. He denied auditory or visual hallucination. No delusion or paranoia noted. He denied suicidal ideation, intent or plan. He also denied homicidal ideation, intent or plan. PLAN: 1. Continue current medication and care. 2. Continue redirection. 3. Final medication management and discharge plan by the regular team. BRYCE CAMPOS MD CM:PNTRANS [phone] BRYCE CAMPOS MD 12/25/17 0508 interface
--- NOTE | ~2017-12-12 | PR ---
[place], [place] PROGRESS NOTE [id number] UNIT #: [id number] ROOM: 309 DOCTOR: ROXANNA MAZARIEGOS MD BIRTHDATE: [birth year] DOS: 01/04/2018 CHIEF COMPLAINT: "I am still depressed, but I think those thoughts are getting better." SUMMARY OF THE VISIT: The patient was interviewed as he sat at the edge of the dining area. He reported to me that he is still feeling very depressed, but for the first time in his stay, he reported that the intrusive thoughts of hurting himself and others have lessened in both frequency and intensity. He continues to complain of having an unstable gait. I discussed his gait issues with Physical Therapy who report he has significant safety issues and is very unsteady even with the walker and that he does not utilize the walker correctly and represents a significant risk of falling and injuring himself. MENTAL STATUS: He is alert and oriented with some time gaps. Mood does seem to be trending towards euthymia. Affect is more appropriate. There is no susan or hypomania. There are no gross auditory or visual hallucinations. Memory for the most part is intact. PLAN: I am going to maintain his current psychotropic regimen. We have discussed the case at length in treatment team and are still strongly recommending a less than 30-day rehab stay to further allow the medication to work to combat the depression as well as for him to utilize that time to strengthen his gait and not be such a risk for falls. We will talk to the family at length and discuss with them the pros and cons of all the options. ROXANNA MAZARIEGOS MD CM:PNTRANS [id number] ROXANNA MAZARIEGOS MD 01/04/18 0944 interface
--- NOTE | ~2017-12-12 | CON ---
[place], [place] REPORT OF CONSULTATION NAME: BOYD TOURE UNIT #: [id number] ROOM: 317 DOCTOR: LIZZIE BOYER ED.DJACK) BIRTHDATE: [birth year] DOS: 12/14/2017 HISTORY OF PRESENT ILLNESS: The patient is an 87-year-old male referred by Dr. Mazariegos for psychological evaluation. At the present time, he is on the [facility]. He is and has four children. He is retired from the [employer]. He states his family physician is Dr. Judge and his medical history is pertinent for major depressive disorder, hyperlipidemia, GERD, prostate cancer, hypothyroidism, macular degeneration, and major depression. His psych meds include Cymbalta and Seroquel. The patient denies any drug or alcohol use or abuse. He was awake, alert and oriented in all 3 spheres and did quite well throughout the interview. He does admit to being very depressed and having thoughts of harming others and he still has those thoughts. He denies any suicidal ideation, however. He follows with Dr. Salazar, who is a psychiatrist in the [place], [place] area. He also follows with Dr. Salazar's therapist for counseling. He was admitted to the [facility] earlier this year. He states he was depressed and they placed him on Invega and he did fairly well for a while, but then he started to decompensate. He is now depressed again and feels as though he wants to hurt other people. He states he would never do anything to hurt anybody else, but he states that he has thoughts of harming others. In my opinion, this patient is possibly a danger to others, although he denies he would do anything to harm others. He does have a history of prostate cancer, but he seemed to be not too disturbed about this because of the fact that he is not getting medications and that his age, this would not be a significant issue according to him. He is depressed partly because of his age and also difficulties he and his have had with the aging process in general. Overall, however, he does fairly well and realizes his situation is better than most at his age because he is 87 years old. He states he has no idea why he has gotten depressed again, but he really wants to no longer feel depressed and also no longer feel like he wants to harm others. DIAGNOSIS: Major depressive disorder with psychotic features. RECOMMENDATIONS: 1. The patient should continue his medications as prescribed. 2. The patient should follow up with Psychiatry and Psychology once he is discharged from the hospital. Thank you very much for this consult. [place], [place] REPORT OF CONSULTATION NAME: BOYD TOURE UNIT #: [id number] ROOM: [facility] DOCTOR: LIZZIE BOYER ED.D (JACK) BIRTHDATE: [birth year] LIZZIE BOYER ED.D CM:CONSTR:REPORT OF CONSULTATION 1717 12/15/17 0207 interface ROXANNA MAZARIEGOS MD
--- NOTE | ~2017-12-12 | PR ---
[place], [place] PROGRESS NOTE NAME: BOYD TOURE [facility] #: [id number] UNIT #: [id number] ROOM: 311 DOCTOR: BRYCE CAMPOS MD BIRTHDATE: [birth year] DOS: 12/23/2017 PSYCHIATRIC PROGRESS NOTE SUBJECTIVE: The patient is seen and spoke with the staff. Per staff, the patient is doing well, taking his medication. Slept well last night, but lately he started showing some tremor. The patient was pleasant and cooperative. He was in the day area, watching the TV. When I asked him how he is doing, he said "good." I asked, I wanted to see the tremor, but it seems like he is doing well when I asked him to extend his arm. He was not in any acute distress. He did not mention any problems or issues. MENTAL STATUS EXAMINATION: The patient was pleasant and cooperative. Described his mood as "okay." He denied auditory or visual hallucination. No delusion or paranoia are noted. He denied suicidal ideation, intent or plan. He also denied any homicidal ideation, intent or plan. PLAN: Include; 1. Continue current medication and care. 2. Continue to monitor about the shake. 3. The patient probably will need to have a Neurology referral on discharge. 4. Increase activity in groups. BRYCE CAMPOS MD CM:PNTRANS [id number] BRYCE CAMPOS MD 12/24/17 0516 interface
[~2017-12-12 08:43] MED LIST: CELEXA20 MG PO; FENOFIBRATE160 MG PO; FINASTERIDE5 M1 PO; LOVASTATIN40 MG PO; MIDODRINE HCL10 MG PO; MIDODRINE HCL5 M1 PO; MIRTAZAPINE15 M2 PO; NAMENDA XR28 M1 PO; NEURONTIN800 MG PO; PALIPERIDONE ER3 MG PO; PROPRANOLOL HCL10 MG PO; SYNTHROID,LEV112 MCG PO; VITAMIN D31000 UNIT PO
[2017-12-12 08:44] VITALS: BP 170/69
[2017-12-12 09:19] LABS: URINE AMPHETAMINES < 1000 (1000ng/ml); URINE BARBITURATES < 200 (200ng/ml); URINE BENZODIAZEPINES < 200 (200ng/ml); URINE CANNABINOIDS (THC) < 50 (50ng/ml); URINE COCAINE < 300 (300ng/ml); URINE METHADONE < 300 (300ng/ml); URINE OPIATES < 300 (300ng/ml)
[2017-12-12 09:24] LABS: COLOR YELLOW (YELLOW)
[2017-12-12 09:25] LABS: BILIRUBIN NEGATIVE (NEGATIVE); BLOOD TRACE-LYSED (NEGATIVE); CLARITY CLEAR (CLEAR); GLUCOSE NEGATIVE (NEGATIVE); KETONE NEGATIVE (NEGATIVE); PH 5.5 (5.0-9.0); SPECIFIC GRAVITY 1.015 (1.005-1.030); UROBILINOGEN 0.2 E.U./dl (0.2-1.0)
[2017-12-12 09:26] LABS: BASO % 0.5 % (0.0-1.0); EOS # 0.1 10*3/uL (0.0-0.4); EOS % 1.8 % (1.0-4.0); HEMATOCRIT 41.3 % (42.0-52.0); HEMOGLOBIN 14.5 g/dl (14.0-18.0); LYMPH # 1.3 10*3/uL (1.3-4.4); LYMPH % 33.8 % (27.0-41.0); MEAN CELL VOLUME 93.7 fl (80.0-94.0); MEAN CORPUSCULAR HGB 32.9 pg (27.0-31.0); MEAN CORPUSCULAR HGB CONC 35.1 g/dl (33.0-37.0); MEAN PLATELET VOLUME 9.7 fl (9.6-12.3); MONO # 0.3 10*3/uL (0.1-1.0); MONO % 7.6 % (3.0-9.0); NEUT # 2.2 10*3/uL (2.3-7.9); PLATELET COUNT AUTOMATED 161 10*3/uL (130-400); RED BLOOD COUNT 4.41 10*6/uL (4.50-5.90); RED CELL DISTRI WIDTH 11.9 % (0-14.5)
[2017-12-12 09:26] LABS: EPITHELIAL CELLS 0-2; LEUKO ESTERASE NEGATIVE (NEGATIVE); NITRITE NEGATIVE (NEGATIVE); URINE PHENCYCLIDINE < 25 (25ng/ml)
[2017-12-12 09:42] LABS: ALBUMIN 3.6 gm/dl (3.1-4.5); ALKALINE PHOSPHATASE 70 U/L (45-117); BUN 19 mg/dl (7-24); CHLORIDE 108 mmol/L (98-107); CREATININE 1.01 mg/dL (0.70-1.30); POTASSIUM 3.8 mmol/L (3.5-5.1); SGOT/AST 19 IU/L (3-35); SODIUM 142 mmol/L (136-145); TOTAL PROTEIN 6.6 gm/dL (6.4-8.2)
[2017-12-12 09:53] LABS: SGPT/ALT 20 U/L (12-78)
[2017-12-12] MEDS ORDERED: MIRTAZAPINE15 M2 PO (11:06)
[2017-12-12] MEDS ORDERED: NAMENDA-28 PO (11:08)
[2017-12-12] MEDS ORDERED: MULTIPLE VITAM1 EAC1 PO (11:09)
[2017-12-12] MEDS ORDERED: HALOPERIDOL5 MG PO (11:10)
[2017-12-12] MEDS ORDERED: FISH OIL CONC1000 M1 PO (11:10)
[2017-12-12 12:11] VITALS: BP 158/78
[2017-12-12 12:46] VITALS: BP 159/78
[2017-12-12 20:00] VITALS: BP 149/69
[2017-12-13 07:49] LABS: BASO % 0.5 % (0.0-1.0); EOS # 0.1 10*3/uL (0.0-0.4); EOS % 1.6 % (1.0-4.0); HEMATOCRIT 45.3 % (42.0-52.0); LYMPH # 1.8 10*3/uL (1.3-4.4); LYMPH % 29.3 % (27.0-41.0); MEAN CELL VOLUME 92.3 fl (80.0-94.0); MEAN CORPUSCULAR HGB 32.6 pg (27.0-31.0); MEAN CORPUSCULAR HGB CONC 35.3 g/dl (33.0-37.0); MEAN PLATELET VOLUME 9.6 fl (9.6-12.3); MONO # 0.4 10*3/uL (0.1-1.0); MONO % 6.3 % (3.0-9.0); NEUT # 3.8 10*3/uL (2.3-7.9); NEUT % 62.1 % (47.0-73.0); PLATELET COUNT AUTOMATED 196 10*3/uL (130-400); RED BLOOD COUNT 4.91 10*6/uL (4.50-5.90); RED CELL DISTRI WIDTH 11.9 % (0-14.5); WHITE BLOOD COUNT 6.2 10*3/uL (4.8-10.8)
[2017-12-13 08:05] VITALS: BP 104/69
[2017-12-13 08:09] LABS: BUN 14 mg/dl (7-24); CHLORIDE 103 mmol/L (98-107); CHOLESTEROL 210 mg/dL (<200); SGOT/AST 24 IU/L (3-35); SGPT/ALT 22 U/L (12-78); SODIUM 139 mmol/L (136-145); TOTAL PROTEIN 7.4 gm/dL (6.4-8.2); TRIGLYCERIDES 189 mg/dl (<150); VLDL CHOLESTEROL 38 mg/dL (6-40)
[2017-12-13 08:17] LABS: ALKALINE PHOSPHATASE 81 U/L (45-117); HDL CHOLESTEROL 54 mg/dl (40-60); LDL CHOLESTEROL 118 mg/dL (9-159)
[2017-12-13 09:31] LABS: VITAMIN D, 25-HYDROXY 32.1 ng/mL (30-100)
[2017-12-13 20:02] VITALS: BP 116/64
[2017-12-14 08:22] VITALS: BP 159/68
[2017-12-14 20:04] VITALS: BP 143/80
[2017-12-15 07:24] VITALS: BP 145/81
[2017-12-15 20:00] VITALS: BP 138/70
[2017-12-16 07:27] VITALS: BP 130/74
[2017-12-16 19:27] VITALS: BP 128/72
[2017-12-17 07:16] VITALS: BP 151/71
[2017-12-17 20:00] VITALS: BP 151/82
[2017-12-18 08:12] VITALS: BP 130/60
[2017-12-18 17:04] LABS: NEURONTIN (GABAPENTIN) 11.6 ug/mL (4.0-16.0)
[2017-12-18 19:18] VITALS: BP 142/81
[2017-12-19 08:43] VITALS: BP 125/68
[2017-12-19 20:09] VITALS: BP 150/67
[2017-12-20 06:44] VITALS: BP 157/79
[2017-12-20 20:05] VITALS: BP 130/84
[2017-12-21 07:16] VITALS: BP 149/85
[2017-12-21 18:43] VITALS: BP 119/65
[2017-12-22 08:50] VITALS: BP 138/74
[2017-12-22 19:06] VITALS: BP 126/69
[2017-12-23 08:06] VITALS: BP 134/84
[2017-12-23 20:13] VITALS: BP 147/67
[2017-12-24 07:12] VITALS: BP 130/68
[2017-12-24 11:41] VITALS: BP 102/69
[2017-12-24 19:19] VITALS: BP 138/90
[2017-12-24 19:52] VITALS: BP 144/78
[2017-12-25 08:18] VITALS: BP 157/79
[2017-12-25 20:00] VITALS: BP 138/72
[2017-12-26 07:58] VITALS: BP 148/78
[2017-12-26 20:01] VITALS: BP 146/70
[2017-12-27 08:00] VITALS: BP 141/77
[2017-12-27 09:14] VITALS: BP 141/77
[2017-12-27 19:51] VITALS: BP 147/72
[2017-12-28 06:26] VITALS: BP 138/77
[2017-12-28 20:27] VITALS: BP 153/84
[2017-12-29 07:48] VITALS: BP 151/72
[2017-12-29 20:47] VITALS: BP 148/62; BP 198/62
[2017-12-30 07:23] VITALS: BP 128/73
[2017-12-30 19:48] VITALS: BP 150/70
[2017-12-31 07:51] VITALS: BP 146/82
[2017-12-31 19:59] VITALS: BP 128/85
[2018-01-01 08:00] VITALS: BP 155/58
[2018-01-01 20:00] VITALS: BP 122/88; BP 140/72
[2018-01-02 08:47] VITALS: BP 132/59
[2018-01-02 10:29] VITALS: BP 100/50
[2018-01-02 19:51] VITALS: BP 135/76
[2018-01-03 07:31] VITALS: BP 146/77
[2018-01-03 19:47] VITALS: BP 142/82
[2018-01-04 08:23] VITALS: BP 124/74
[2018-01-04 08:24] VITALS: BP 124/74
[2018-01-04] MEDS ORDERED: EXEL13.31 T (10:26)
[2018-01-04] MEDS ORDERED: TRINTELLIX20 MG PO (10:27)
[2018-01-04] MEDS ORDERED: VITAMIN E400 UNI1 PO (10:27)
[2018-01-04] MEDS ORDERED: NAMENDA10 MG PO (10:27)
[2018-01-04] MEDS ORDERED: SINEMET 10-1001 EACH PO (10:30)
[2018-01-05 08:11] LABS: NEURONTIN (GABAPENTIN) 8.2 ug/mL (4.0-16.0)
[2018-01-05] MEDS ORDERED: EXEL13.31 T (11:26)
[2018-01-05] MEDS ORDERED: FISH OIL CONC1000 M1 PO (11:26)
[2018-01-05] MEDS ORDERED: MIDODRINE HCL10 MG PO (11:26)
[2018-01-05] MEDS ORDERED: LOVASTATIN40 MG PO (11:26)
[2018-01-05] MEDS ORDERED: MIDODRINE HCL5 M1 PO ×2 (11:26)
[2018-01-05] MEDS ORDERED: PROPRANOLOL HCL10 MG PO (11:26)
[2018-01-05] MEDS ORDERED: NAMENDA10 MG PO (11:27)
[2018-01-05] MEDS ORDERED: NEURONTIN800 MG PO (11:27)
[2018-01-05] MEDS ORDERED: VITAMIN D31000 UNIT PO (11:27)
[2018-01-05] MEDS ORDERED: TRINTELLIX20 MG PO (11:27)
[2018-01-05] MEDS ORDERED: SYNTHROID,LEV112 MCG PO (11:27)
[2018-01-05] MEDS ORDERED: MULTIPLE VITAM1 EAC1 PO (11:27)
[2018-01-05] MEDS ORDERED: SINEMET 10-1001 EACH PO (11:27)
[2018-01-05] MEDS ORDERED: VITAMIN E400 UNI1 PO (11:27)
[2018-01-05] MEDS ORDERED: FINASTERIDE5 M1 PO (11:27)
== END 2018-01-04 12:25 | disposition short-term general hospital (02) | DRG 885 ==
LOC: ED 08:43 → 3N 11:29
PROVIDERS: Emergency Medicine; Psychiatry & Neurology Psychiatry; Registered Nurse
DX: F33.3 Major depressive disorder, recurrent, severe with psychotic symptoms (principal); R45.851 Suicidal ideations; K21.9 Gastro-esophageal reflux disease without esophagitis; R45.850 Homicidal ideations; G62.9 Polyneuropathy, unspecified; N40.0 Benign prostatic hyperplasia without lower urinary tract symptoms; E78.00 Pure hypercholesterolemia, unspecified; I10 Essential (primary) hypertension; H35.30 Unspecified macular degeneration; E03.9 Hypothyroidism, unspecified; E78.5 Hyperlipidemia, unspecified; Z82.3 Family history of stroke; Z79.899 Other long term (current) drug therapy

== ENCOUNTER 2018-01-04 12:53 | Inpatient (IN) | payer OTHER ==
[~2018-01-04] VITALS: Ht 182.9 cm; Wt 78.5 kg
[2018-01-04 12:20] VITALS: BP 153/72
[~2018-01-04 12:53] MED LIST changes: +EXEL13.31 T; +FISH OIL CONC1000 M1 PO; +HALOPERIDOL5 MG PO; +MULTIPLE VITAM1 EAC1 PO; +NAMENDA-28 PO; +NAMENDA10 MG PO; +SINEMET 10-1001 EACH PO; +TRINTELLIX20 MG PO; +VITAMIN E400 UNI1 PO
[2018-01-04 13:00] VITALS: BP 158/75
[2018-01-04 16:00] VITALS: BP 129/61
[2018-01-04 20:00] VITALS: BP 136/67
[2018-01-05] VITALS: BP 122/61
[2018-01-05 08:00] VITALS: BP 152/69
[2018-01-05] MEDS ORDERED: FISH OIL CONC1000 M1 PO (11:26)
[2018-01-05] MEDS ORDERED: MIDODRINE HCL5 M1 PO ×2 (11:26)
[2018-01-05] MEDS ORDERED: EXEL13.31 T (11:26)
[2018-01-05] MEDS ORDERED: LOVASTATIN40 MG PO (11:26)
[2018-01-05] MEDS ORDERED: PROPRANOLOL HCL10 MG PO (11:26)
[2018-01-05] MEDS ORDERED: MIDODRINE HCL10 MG PO (11:26)
[2018-01-05] MEDS ORDERED: VITAMIN D31000 UNIT PO (11:27)
[2018-01-05] MEDS ORDERED: TRINTELLIX20 MG PO (11:27)
[2018-01-05] MEDS ORDERED: NAMENDA10 MG PO (11:27)
[2018-01-05] MEDS ORDERED: SINEMET 10-1001 EACH PO (11:27)
[2018-01-05] MEDS ORDERED: SYNTHROID,LEV112 MCG PO (11:27)
[2018-01-05] MEDS ORDERED: MULTIPLE VITAM1 EAC1 PO (11:27)
[2018-01-05] MEDS ORDERED: VITAMIN E400 UNI1 PO (11:27)
[2018-01-05] MEDS ORDERED: NEURONTIN800 MG PO (11:27)
[2018-01-05] MEDS ORDERED: FINASTERIDE5 M1 PO (11:27)
== END 2018-01-05 12:30 | disposition home or self-care (01) | DRG 74 ==
LOC: 5E 12:53
DX: G62.9 Polyneuropathy, unspecified (principal); F33.3 Major depressive disorder, recurrent, severe with psychotic symptoms; R45.851 Suicidal ideations; K21.9 Gastro-esophageal reflux disease without esophagitis; E03.9 Hypothyroidism, unspecified; E78.5 Hyperlipidemia, unspecified; R25.9 Unspecified abnormal involuntary movements; E78.00 Pure hypercholesterolemia, unspecified; N40.1 Benign prostatic hyperplasia with lower urinary tract symptoms; I10 Essential (primary) hypertension; R00.1 Bradycardia, unspecified; R45.850 Homicidal ideations; Z82.3 Family history of stroke; Z79.899 Other long term (current) drug therapy